=== PATIENT | male | born 1955 | race Caucasian/White ===

== ENCOUNTER 2021-07-25 15:53 | Inpatient (IN) | payer OTHER ==
[~2021-07-25] VITALS: Ht 188 cm; Wt 88.0 kg
[2021-07-25 16:02] VITALS: BP 145/100
[2021-07-25 16:26] LABS: BASOPHILS 0.3 % (0.0-2.0); HEMATOCRIT 51.5 % (42.0-52.0); HEMOGLOBIN 17.5 gm/dL (14.0-18.0); MCH 31.7 pg (26.0-34.0); MCV 93.4 fL (80.0-100.0); MONOCYTES 5.1 % (1.0-8.0); PLATELET COUNT 284 thou/uL (150-400); POLYS 92.6 % (36.0-66.0); RBC 5.51 mil/uL (4.50-6.00); RDW 13.9 % (10.5-14.5); WBC 11.9 thou/uL (4.0-11.0)
[2021-07-25 16:44] LABS: BE(vivo) -3.5 mmol/L (-2 to +3); HCO3 18.1 mmol/L (22.0-26.0); PCO2 25.8 mmHg (35.0-45.0); PO2 64.2 mmHg (80.0-100.0); pH 7.463 (7.360-7.450)
[2021-07-25 16:48] LABS: CALCIUM 9.4 mg/dL (8.5-10.1); CREATININE 1.1 mg/dL (0.7-1.3)
[2021-07-25 16:51] LABS: ALBUMIN 2.9 g/dL (3.4-5.0); TOTAL BILIRUBIN 0.7 mg/dL (0.2-1.0); TOTAL PROTEIN 8.2 g/dL (6.4-8.2)
--- NOTE | 2021-07-25 19:04 | NUR ---
REPORT GIVEN TO MORELIA GABRIEL AT THIS TIME
[2021-07-25 20:02] VITALS: BP 134/88
[2021-07-25 20:49] VITALS: BP 126/81
[2021-07-25 21:19] LABS: ALBUMIN 2.6 g/dL (3.4-5.0); TOTAL PROTEIN 7.3 g/dL (6.4-8.2)
[2021-07-25 21:41] VITALS: BP 147/94
[2021-07-25 23:56] VITALS: BP 141/88
--- NOTE | 2021-07-26 02:01 | NUR ---
PT ADMITTED TONIGHT TO RM 349 FROM ER FOR SOA COVID +. ALERT AND ORIENTED X4. DENIED WEAKNESS OR DIZZINESS BUT PLACED ON FALL PRECAUTIONS FOR NOW DUE TO SOA, OPTIFLOW TUBES ANDD IV TUBING. VSS AFEBRILE. OPTIFLOW AT 50LF AND 95% FIO2. LUNGS SOUND DIMINSHED AND UNLABORED PRESENTLY. ORIENTED PT TO , FALL PRECAUTIONS, MEDICATIONS ETC. BED ALARM IS ON. WILL CONTINUE TO MONITOR PT FOR CHANGES.
[2021-07-26 04:10] VITALS: BP 116/82
[2021-07-26 04:52] LABS: HEMATOCRIT 48.5 % (42.0-52.0); HEMOGLOBIN 16.5 gm/dL (14.0-18.0); MCH 31.8 pg (26.0-34.0); MCHC 34.1 g/dL (28.0-37.0); MCV 93.4 fL (80.0-100.0); RBC 5.19 mil/uL (4.50-6.00); RDW 13.6 % (10.5-14.5); WBC 8.8 thou/uL (4.0-11.0)
[2021-07-26 05:05] LABS: CALCIUM 9.2 mg/dL (8.5-10.1); CREATININE 0.9 mg/dL (0.7-1.3); MAGNESIUM 2.3 mg/dL (1.8-2.4); POTASSIUM 4.5 mmol/L (3.5-5.1)
--- NOTE | 2021-07-26 05:46 | NUR ---
PT TOLERATING OPTIFLOW SAT IS 99% PRESENTLY.NO C/O PAIN OR SOA. LUNGS SOUND DIMINISHED AND UNLABORED PRESENTLY. VSS AFEBRILE.
--- NOTE | 2021-07-26 06:47 | NUR ---
I ASKED PT HIS CURRENT PHARMACY AND HE IS NOT CERTAIN WHICH PHARMACY HIS DAUGHTER PICKED HIS MEDS UP FROM IN [facility]. HE DID NOT KNOW HIS CURRRENT MEDS . I ATTEMPTED TO ASK HIM HIS CURRENT MEDS FROM HIS RECENT CLAIM HISTORY DOSES ARE LISTED BUT PT IS UNABLE TO TELL NS TIMES HE TAKES HIS MEDS OR WHICH MEDS HE IS STILL CURRENTLY TAKING. INSTRUCTED PT HE SHOULD INFORM NS HE IS TAKING MEDS FOR ERECTILE DYSFUNCTION NEXT TIME UPOM ADMISSION DUE TO POTENTIAL DRUG INTERACTIONS. PT STATED HE WOULD TEXT HIS DAUGHTER TO BRING A LIST OF HIS HOME MEDS AMD CURRENT PHARMACY ADDRESS IN [facility].
[2021-07-26 07:17] VITALS: BP 134/94
[2021-07-26 11:07] VITALS: BP 129/84
[2021-07-26 11:21] VITALS: BP 129/84
[2021-07-26] MEDS ORDERED: MELOXICAM15 MG PO (14:58)
[2021-07-26] MEDS ORDERED: NEURONTIN 300M300 M2 PO (14:58)
[2021-07-26] MEDS ORDERED: CIALIS20 MG PO (14:59)
[2021-07-26 16:11] VITALS: BP 144/94
[2021-07-26] MEDS ORDERED: DEXAMETHASONE 44 M1 (18:19)
[2021-07-26] MEDS ORDERED: IVERMECTIN3 MG PO (18:20)
[2021-07-26] MEDS ORDERED: LUVOX 50MG TABL50 M1 PO (18:21)
[2021-07-26] MEDS ORDERED: PLAQUENIL200 MG PO (18:22)
[2021-07-26] MEDS ORDERED: SPIRONOLACTONE100 M1 PO (18:23)
[2021-07-26] MEDS ORDERED: CYPROHEPTAD2 MG/5 ML PO (18:24)
[2021-07-26] MEDS ORDERED: DUTASTERIDE0.5 MG PO (18:24)
[2021-07-26] MEDS ORDERED: LIPITOR 20 MG T20 M1 PO (18:25)
[2021-07-26] MEDS ORDERED: FAMOTIDINE20 MG PO (18:26)
[2021-07-26] MEDS ORDERED: K2-D3 10,000 U1 EACH PO (18:27)
[2021-07-26] MEDS ORDERED: VITAMIN C1000 MG PO (18:28)
[2021-07-26] MEDS ORDERED: ZINC50 M3 PO (18:28)
--- NOTE | 2021-07-26 20:00 | NUR ---
PT ALERT AND ORIENTED X 4. SPOKE WITH PT AND DAUGHTER, JAVY, MULTIPLE TIMES TODAY ABOUT COURSE OF TREATMENT. PT ORIGINALLY DENIED REMDESIVIR. AFTER SPEAKING WITH PT AND EDUCATING ON DISEASE PROCESS, PT SAID "I WANT REMDESIVIR, JUST DONT TELL MY DAUGHTER". AFTER SPEAKING WITH DAUGHTER, WHO IS RN FLOAT, SHE STATED SHE WAS EXTREMELY AGAINST REMDESIVIR SHE HAS "SEEN PT'S TANK ON REMDESIVIR". DAUGHTER REQUESTED AND INSISTED ON HAVING A COPY OF ALL MEDICATIONS PT IS TAKING, REGARDLESS OF NOT BEING DPOA. SPOKE WITH PT ABOUT DAUGHTER WANTING MEDICATION LIST AND PT SAID HE WAS UNSURE IF HE WANTED THAT OR NOT. PT ALSO CHANGED HIS MIND AGAIN ABOUT TAKING REMDESIVIR, STATING HIS DAUGHTER WAS VERY AGAINST IT. DAUGHTER UPSET THAT "DOCTOR AND NURSE ARE SCARING MY FATHER", AFTER PT EDUCATION. EDUCATED PT THAT HE IS ALERT, ABLE, AND SHOULD MAKE HIS OWN DECISIONS BASED ON HIS THOUGHTS, NOT THAT OF OTHERS. PT SAID HE WOULD CONSIDER STILL TAKING REMDESIVIR.
[2021-07-26 20:41] VITALS: BP 150/97
[2021-07-27 04:33] LABS: HEMATOCRIT 47.4 % (42.0-52.0); HEMOGLOBIN 16.4 gm/dL (14.0-18.0); MCH 32.2 pg (26.0-34.0); MCHC 34.6 g/dL (28.0-37.0); RBC 5.09 mil/uL (4.50-6.00); RDW 13.4 % (10.5-14.5); WBC 10.7 thou/uL (4.0-11.0)
[2021-07-27 04:49] LABS: CALCIUM 9.1 mg/dL (8.5-10.1); CREATININE 0.9 mg/dL (0.7-1.3); MAGNESIUM 2.3 mg/dL (1.8-2.4); POTASSIUM 4.2 mmol/L (3.5-5.1)
[2021-07-27 05:51] VITALS: BP 124/97
--- NOTE | 2021-07-27 06:37 | NUR ---
PT A/0X4. 02 SATURATION STAYED IN MID 90'S OVERNIGHT ON THE OPTIFLOW. SPOKE TO PT'S DAUGHTER WHO IS AN ASSEMBLER [employer] AND ANSWERED HER QUESTIONS. SHE ALSO STATED THAT HER FATHER DOES NOT WANT THE REMEDESIVIR. PT VOIDED AND HAD BM OVERNIGHT.
[2021-07-27 07:11] VITALS: BP 125/83
--- NOTE | 2021-07-27 07:12 | EKG ---
[address] [address] ELECTROCARDIOGRAM REPORT Name: MITRA CORNEJO Room #: 349-I ADM IN M.R.#: [id number] Admission: 07/25/21 Attend Phys: Keshav Correa MD Discharge: Date of : 57 Report #: [id number] [facility] ED Test Date: 2021-07-25 Test Time: 16:07:13 Pat Name: MITRA CORNEJO Department: Room: 349 Gender: M Freight Inspector: GOMEZ : 1955 Requested By: Steven Hoff Order Number: [id number] MD: Adan Lin Measurements Intervals Dike Rate: 79 P: 21 UT: 165 QRS: 54 QRSD: 90 T: 38 QT: 370 QTc: 425 Interpretive Statements Sinus rhythm Probable left atrial enlargement Baseline wander in lead(s) V3 No previous ECG available for comparison Electronically Signed On 07-27-2021 7:12:01 EXTERMINATOR [employer]PER TERMITE by Adan Lin [email or web address] <ELECTRONICALLY SIGNED> By: Adan Lin MD, [facility] 07/27/21 0712 [id number] Adan Lin MD, FACC /EPI
--- NOTE | 2021-07-27 08:31 | HC ---
[facility] [address] [address] CONSULTATION Name: MITRA CORNEJO Room #: 349-I ADM IN .R.#: [id number] Admission: 07/25/21 Attend Phys: Keshav Correa MD Discharge: Date of : 57 Report #: [id number] THIS REPORT FOR: cc: FAM - Family physician unknown FAM - Family physician unknown Mario Martinez MD ~ DATE OF SERVICE: 07/26/2021 INFECTIOUS DISEASE CONSULTATION ATTENDING PHYSICIAN: Dr. Correa. REASON FOR EVALUATION: COVID-19 infection. HISTORY OF PRESENT ILLNESS: Chart reviewed. The patient examined. This is a 65-year-old gentleman with minimal past medical history, does have a basal cell carcinoma of the face, who apparently has been ill for a number of days, somewhat of a biphasic illness. He had developed mild respiratory type signs and symptoms back on 07/08, was found to be COVID positive when tested. He noted he took obiy-pnf-evvcqjt medicines, was seemingly doing okay until , which had been 07/22 and clinical worsening is notable that his spouse had COVID as well and she did require more immediate care, specifically noted increasing dyspnea, did obtain a sat monitor where it became apparent that he was progressively getting worse. He was found to have saturations in the 60s. He did present to the Emergency Room, he was again confirmed to have COVID positive testing. ABGs showed a pO2 of 64 on 6 liters. Influenza antigen was negative. Lactic acid of 2.4. Chest x-ray showed bibasilar interstitial pneumonitis. Procalcitonin was slightly elevated at 0.11. He did undergo CT of the chest, noted no evidence of pulmonary embolus. Blood cultures collected at time of admission are sterile thus far. 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 Early on, may have had some fevers and chills, shakes, not for many days, however. He was empirically started on combination therapy with ceftriaxone and azithromycin. Also, given corticosteroids, ivermectin. ALLERGIES: None known. CURRENT MEDICATIONS: Include dexamethasone, ceftriaxone, azithromycin, thiamine, ipratropium, albuterol inhaler, ivermectin, famotidine, enoxaparin, atorvastatin, melatonin, zinc, ascorbic acid. PAST MEDICAL HISTORY: Notable for basal cell carcinoma, hernia repair. SOCIAL HISTORY: Nonsmoker, occasional ethanol, no illicit drug use. FAMILY HISTORY: Noncontributory. [facility] [address] [place] [address] CONSULTATION Name: MITRA CORNEJO Room #: 349-I [facility] IN [facility]#: [id number] Admission: 07/25/21 Attend Phys: Keshav Correa MD Discharge: Date of : 57 Report #: [id number] REVIEW OF SYSTEMS: Otherwise, unremarkable. PHYSICAL EXAMINATION: GENERAL: He is alert, cooperative, in moderate distress secondary to respiratory difficulty. He does have intermittent coughs that are nonproductive. He is generally lucid, appears to be reasonably well nourished. VITAL SIGNS: Temperature 97.1, pulse 76, respirations 20, blood pressure is 134/94. HEENT: Normocephalic. Extraocular muscles intact. Does have a high flow nasal cannula in place at 50 liters per minute, FiO2 of 95%. NECK: Supple. LUNGS: Bilateral scattered crackles. HEART: Regular. I do not appreciate a murmur. ABDOMEN: Mildly distended, somewhat firm, nontender. EXTREMITIES: No cyanosis. GENITOURINARY AND RECTAL: Deferred. LABORATORY DATA: Blood cultures sterile thus far. Electrolytes: Sodium 134, potassium 4.5, chloride 99, bicarbonate is 22, anion gap of 13, BUN and creatinine 31 and 0.9, glucose of 154. D-dimer 0.87. CRP of 15.1. CBC: White count of 8.8, H and H 16.5 and 48.5, platelets of 251. Lactic acid initially 2.4, repeat was 1.8. ASSESSMENT AND PLAN: COVID-19 infection, complicated by pneumonitis and respiratory failure with early ARDS, appears to be somewhat of a biphasic illness and include a secondary bacterial pneumonitis, started on combination therapy. Given his potential exposure, we will adjust treatment for atypicals utilizing a tetracycline instead of the macrolide. We will try to collect a sputum sample in the event that he can expectorate. He remains quite tenuous at this point, he is out of the timeframe for remdesivir. He appears to be quite tenuous. Continue to monitor expectantly. <ELECTRONICALLY SIGNED> By: Mario Martinez MD 07/27/21 0831 Mario Martinez MD /nt
[2021-07-27 11:00] VITALS: BP 137/86
[2021-07-27 14:51] VITALS: BP 132/75
--- NOTE | 2021-07-27 14:51 | NUR ---
INITIAL ASSESSMENT: Received consult. MILTON reviewed chart and spoke with nursing and attending physician. Pt was admitted from home due to COVID. Pt placed in Enhanced Isolation. Per chart, pt had first positive COVID test on 07/08. Pt is not received a COVID vaccination. Pt is afebrile and requiring optiflow. Pt is on IV abx and IV steroids. Pt and family have refused Remdesivir. MILTON placed call to pt's room. No anser. Per chart, pt lives at home with his . Prior to admission, pt was independent with ADLs. No use of DME. No steps to enter the home and 12 steps inside. Therapy is following to assist with recommendations for discharge needs. SW is following to assist as needed with discharge planning.
--- NOTE | 2021-07-27 16:46 | NUR ---
PT ALERT AND ORIENTED X 4. SPOKE WITH PT ABOUT REMDESIVIR AND PT DENIED ADMINISTRATION. SPOKE WITH PT DAUGHTER, JAVY, PT DAUGHTER UPSET "WE ARE STILL OFFERING REMDESIVIR". PT AND PT DAUGHTER AGREED TO ACTERMA, PT STARTED MEDICATION TODAY. FALL PRECAUTIONS IN PLACE. WILL CONTINUE TO MONITOR.
[2021-07-27 18:53] VITALS: BP 133/89
[2021-07-27 19:01] VITALS: BP 142/98
--- NOTE | 2021-07-28 03:57 | NUR ---
PROGRESS PT A/O X4. VSS AFEBRILE. LUNGS DIMINISHED BUT COUGHING UP SOME CLEAR/WHITE SEMI THICK SPUTUM. REMAINS ON OPTIFLO AT 50L/98% FIO2. TOLERATING WELL. ASCORBIC ACID AND DOXYCYCLINE ADMINISTERED IV ORDERED. IV INFILTRATED AT END OF DOXYCYCLINE INFUSION REFUSED RESTART OF IV UNTIL THE AM STATING HE WAS TIRED AND WANTED TO SLEEP. VOIDING QS AND HAD AN HS SNACK OF ICE CREAM AND NIKITA CRACKERS. CONTINUE POC.
[2021-07-28 03:58] VITALS: BP 123/83
[2021-07-28 06:40] LABS: HEMOGLOBIN 16.1 gm/dL (14.0-18.0); MCHC 34.2 g/dL (28.0-37.0); MCV 93.5 fL (80.0-100.0); RBC 5.02 mil/uL (4.50-6.00); RDW 13.2 % (10.5-14.5); WBC 8.1 thou/uL (4.0-11.0)
[2021-07-28 07:09] LABS: CALCIUM 8.9 mg/dL (8.5-10.1); CREATININE 0.9 mg/dL (0.7-1.3); MAGNESIUM 2.4 mg/dL (1.8-2.4); POTASSIUM 4.3 mmol/L (3.5-5.1)
[2021-07-28 07:39] VITALS: BP 117/82
[2021-07-28 11:39] VITALS: BP 125/77
--- NOTE | 2021-07-28 13:10 | NUR ---
PT DAUGHTER JAVY HAS CALLED 2X AND WOULD LIKE FOR DR. GEE, DR. KIM, AND DR. JARRETT TO CALL HER TODAY. HER NUMBER IS [phone]. HER CONCERNS ARE PT'S CRP JUMPED FROM 8 TO 75.5 AND WOULD LIKE TO HAVE HER FATHER PRONED.
[2021-07-28 15:01] VITALS: BP 121/78
--- NOTE | 2021-07-28 15:47 | NUR ---
MILTON reviewed chart and spoke with nursing and attending physician. Pt remains in Enhanced Isolation due to COVID. Pt is afebrile and on optiflow. Pt is on IV steroids and IV abx. Pt had dose of actemra yesterday. SW placed calls to pt's room. No answer. Per chart, pt's dtr, Mel, has called requesting to speak with physicians. Pt is from home. Therapy has been ordered to assist with recommendations for discharge needs. MILTON is following to assist as needed with discharge planning.
[2021-07-28 19:15] VITALS: BP 132/85
[2021-07-29 03:30] VITALS: BP 121/87
[2021-07-29 06:36] LABS: ABSOLUTE NEUTROPHILS 9.9 thou/uL (1.4-8.2); BASOPHILS 0.1 % (0.0-2.0); HEMATOCRIT 44.4 % (42.0-52.0); HEMOGLOBIN 15.2 gm/dL (14.0-18.0); LYMPHOCYTES 3.5 % (24.0-44.0); MCH 31.9 pg (26.0-34.0); MCHC 34.3 g/dL (28.0-37.0); MONOCYTES 2.5 % (1.0-8.0); PLATELET COUNT 272 thou/uL (150-400); POLYS 92.9 % (36.0-66.0); RBC 4.77 mil/uL (4.50-6.00); RDW 13.4 % (10.5-14.5); WBC 10.6 thou/uL (4.0-11.0)
[2021-07-29 07:12] VITALS: BP 125/82
[2021-07-29 07:12] LABS: ALBUMIN 2.3 g/dL (3.4-5.0); CALCIUM 8.5 mg/dL (8.5-10.1); CREATININE 0.9 mg/dL (0.7-1.3); MAGNESIUM 2.2 mg/dL (1.8-2.4); POTASSIUM 4.3 mmol/L (3.5-5.1); TOTAL BILIRUBIN 0.6 mg/dL (0.2-1.0); TOTAL PROTEIN 6.6 g/dL (6.4-8.2)
--- NOTE | 2021-07-29 07:48 | NUR ---
PROGRESS PT A/O X4. VSS UP AD JOSY VOIDING QS. DENIES PAIN. TELEMETRY INTACT READING SR W/BBB RATES IN 70'S TO 80'S. ON OPTIFLOW AT 50L/90%FIO2 NARES BLEEDING AND FEELS STUFFY , CLEANSED WITH NS AND SOME LUBRICATING JELLY APPLIED FOR COMFORT. CONTINUE POC.
[2021-07-29 11:07] VITALS: BP 138/85
--- NOTE | 2021-07-29 12:00 | NUR ---
MILTON reviewed chart and spoke with nursing and attending physician. Enhanced Isolation precautions were discontinued yesterday. Pt is afebrile and on optiflow. Pt is on IV abx, IV steroids and Ivermectin. MILTON spoke with pt via phone. Introduced role of SW. Pt appears to be alert/orientated x 4. Pt reports he lives at home with family. Prior to admission, pt was independent with ADLs. No use of DME. No steps to enter the home. All needs are met on the ground level. No hx of services or post-acute placement. Pt states his PCP is Mel Nance NP (pt's dtr). Therapy has been ordered. Plan is for pt to discharge home when medically stable. Attending physician spoke with pt's dtr yesterday to provide update and discuss plan of care. MILTON is following to assist as needed with discharge planning.
[2021-07-29 15:28] VITALS: BP 134/85
--- NOTE | 2021-07-29 16:27 | NUR ---
PT ALERT AND ORIENTED X 4. PT DENIES PAIN AND ANY NEEDS AT THIS TIME. CALL LIGHT AND BELONGINGS WITHIN REACH. WILL CONTINUE TO MONITOR.
[2021-07-29 19:45] VITALS: BP 133/79
--- NOTE | 2021-07-30 02:47 | NUR ---
PROGRESS PT A/O X4. LUNGS CLEAR AND DIMINISHED. COUGHING MORE FREQUENTLY GETTING UP SOME SMALL AMOUNTS OF SPUTUM PER PATIENT NOT VISUALIZED BY THIS RN. SKIN C/D/I . REMAINS ON OPTIFLOW AT 50 LITERS/90% FIO2. IV TO RF INTACT BUT PT REPORTED PAIN WITH DOXYCYCLINE INFUSION. SITE SLIGHTLY PINK BUT SUBSIDED AFTER FLUSHING WITH 20 CC OF NS. UP AD JOSY TO BSC ABLE TO MANAGE EQUIPMENT WITHOUT DIFFICULTY, VOIDING QS EATING SNACKS FROM HOME AT BEDSIDE PLAN IS TO TITRATE O2 AND INCREASE ACTIVITY TOLERATED.
[2021-07-30 04:53] VITALS: BP 122/80
[2021-07-30 07:16] VITALS: BP 115/82
[2021-07-30 09:28] LABS: HEMATOCRIT 49.8 % (42.0-52.0); HEMOGLOBIN 17.1 gm/dL (14.0-18.0); MCH 31.8 pg (26.0-34.0); MCHC 34.3 g/dL (28.0-37.0); MCV 92.8 fL (80.0-100.0); PLATELET COUNT 312 thou/uL (150-400); RBC 5.36 mil/uL (4.50-6.00); RDW 13.5 % (10.5-14.5); WBC 10.4 thou/uL (4.0-11.0)
[2021-07-30 09:37] LABS: POTASSIUM 3.8 mmol/L (3.5-5.1)
[2021-07-30 11:04] VITALS: BP 123/73
--- NOTE | 2021-07-30 14:05 | NUR ---
MILTON reviewed chart and spoke with nursing and attending physician. Pt remains on optiflow. Pt is afebrile and on IV meds and Ivermectin. No weekend discharge planned. MILTON placed call to pt's room. No answer. MILTON notified today that pt does not have health insurance. [facility] to screen pt. MILTON is following to assist as needed with discharge planning.
[2021-07-30 15:03] LABS: ABSOLUTE NEUTROPHILS 9.6 thou/uL (1.4-8.2); MYELOCYTES 1 %
[2021-07-30 15:06] VITALS: BP 119/73
--- NOTE | 2021-07-30 16:55 | NUR ---
assumed care of pt at 0700. pt aox4 no distress flat affect voicing no particular complaints or concerns. reports feeling better today and continues to improve. calls out appropriately. iv abx infusing per order.
[2021-07-30 18:47] VITALS: BP 131/84
[2021-07-31 04:57] VITALS: BP 116/77
[2021-07-31 07:06] VITALS: BP 114/71
--- NOTE | 2021-07-31 07:33 | NUR ---
PT MAKING SLOW PROGRESS TOWARDS GOALS. ON O2 PER OPTIFLO AT 50L/92%. PT REPORTING HE HAS BEEN ABLE TO BE UP TO BSC WITHOUT SIGNIFICANT SOA. USING I.S., GETTING VOLUMES UP TO "2000."
[2021-07-31 11:04] VITALS: BP 114/70
--- NOTE | 2021-07-31 13:38 | NUR ---
CARE ASSUMED THIS AM, PT ALERT AND ORIENRED X4, DENIES ANY PAIN, NAUSEA AND VOMITTING. CONTINUE TO BE ON OPTIFLOW 50L, 93%, SOB WITH EXERTION. LUNGS COARSE AND CRACKLY. UP TO BSC, AND USES URINAL. PT DAUGHTER CALLED AND UPDATED ABOUT CARE, SHE WANTED TO TALK TO PT PROVIDERS, MADE THE PROVIDERS AWARE. OFF ISOLATION. DENIES ANY NEEDS, WILL COTNINUE TO MONITOR.
[2021-07-31 15:10] VITALS: BP 130/60
[2021-07-31 19:35] VITALS: BP 132/86
[2021-08-01 03:30] VITALS: BP 1248/80
[2021-08-01 05:12] LABS: CALCIUM 8.7 mg/dL (8.5-10.1); CREATININE 0.8 mg/dL (0.7-1.3); POTASSIUM 3.9 mmol/L (3.5-5.1)
[2021-08-01 05:21] LABS: HEMATOCRIT 45.4 % (42.0-52.0); HEMOGLOBIN 15.5 gm/dL (14.0-18.0); MCH 31.6 pg (26.0-34.0); MCHC 34.2 g/dL (28.0-37.0); MCV 92.6 fL (80.0-100.0); RBC 4.9 mil/uL (4.50-6.00); RDW 13.1 % (10.5-14.5); WBC 10.3 thou/uL (4.0-11.0)
[2021-08-01 07:20] VITALS: BP 114/65
--- NOTE | 2021-08-01 07:28 | NUR ---
PT MAKING SLOW PROGRESS TOWARDS GOALS. ON OPTIFLO AT 50L AND 91%. LUNGS CTA WITH FAINT CRACKLES NOTED OVER RLL. CONTINUES TO USE I.S. AND PRONE HIMSELF FOR SLEEP AT NIGHT.
[2021-08-01 11:00] VITALS: BP 106/57
[2021-08-01 15:47] VITALS: BP 115/75
--- NOTE | 2021-08-01 16:29 | NUR ---
PT IS SLOWLY PROGRESSING TOWARDS CARE. CURRENTLY ON 35L, 65% OPTIFLOW. SOB WITH EXERTION. NO DISTRESS NOTED. UP TO CHAIR INDEPENDENTLY AND USUES URINAL. DENIES DIARRHEA TODAY. VISITING. WILL CONTINUE TO MONITOR
[2021-08-01 18:42] VITALS: BP 127/81
--- NOTE | 2021-08-02 02:27 | NUR ---
PT PROGRESSING SLOWLY TOWARDS D/C GOALS. VSS AFEBRILE. SATS WNL ON OPTIFLO 35LF AND FIO2 65%. DENIED PAIN OR SOA. HE IS RESTING QUIETLY SLEEPING. WILLL CONTINUE TO MONITOR PT FOR CHANGES.
[2021-08-02 04:47] VITALS: BP 113/69
--- NOTE | 2021-08-02 06:09 | NUR ---
NO CHNAGES IN ASSESSMENT TONIGHT EXCEPT LUNGS SOUND SLIGHTLY COARSE THIS AM AND DIMINSHED. ENCOURAGED T,C & DB AND SITTING UP OOB TODAY. OPTIFLO STILL 35LF AND 65 FIO2.
[2021-08-02 07:24] VITALS: BP 109/67
[2021-08-02 11:36] VITALS: BP 117/74
[2021-08-02 16:31] VITALS: BP 124/76
--- NOTE | 2021-08-02 16:52 | NUR ---
SW reviewed chart and spoke with nursing and attending physician. Pt is now on 10L of O2. Pt is on IV steroids. SW spoke with pt via phone. Discussed discharge and possible need for home O2 at time of discharge. Pt verbalized understanding. Plan is for pt to discharge home when medically stable. SW is following to assist as needed with discharge planning.
--- NOTE | 2021-08-02 19:17 | NUR ---
ASSESSMENT CHARTED. PT ALERT AND ORIENTED. VSS. DENIED HAVING PAIN OR DISCOMFORT. ON 10L OXYGEN. REPORT FEELING MUCH BETTER. UP IN THE CHAIR MOST OF THE SHIFT. DAUGHTER UPDATED ON PT'S PROGRESS. PT PROGRESSING WELL TOWARDS DISCHARGE GOAL.
[2021-08-02 20:15] VITALS: BP 140/95
--- NOTE | 2021-08-02 22:22 | NUR ---
PT A&OX4. VSS AFEBRILE. SATS 95% ON RA PRESENTLY. NO C/O OF PAIN OR SOA. ON 10LNC. PROGRESSING WELL TOWARDS D/C GOALS. PT AMBULATES WITH STEADY GAIT IN HIS ROOM. PT OFF ISOLAION NOW.
[2021-08-03 04:16] LABS: CALCIUM 8.5 mg/dL (8.5-10.1); CREATININE 0.8 mg/dL (0.7-1.3); POTASSIUM 3.7 mmol/L (3.5-5.1)
[2021-08-03 04:30] VITALS: BP 120/80
[2021-08-03 04:44] LABS: HEMATOCRIT 45.3 % (42.0-52.0); HEMOGLOBIN 15.6 gm/dL (14.0-18.0); MCH 31.7 pg (26.0-34.0); MCHC 34.4 g/dL (28.0-37.0); MCV 92.2 fL (80.0-100.0); RBC 4.91 mil/uL (4.50-6.00); RDW 13.3 % (10.5-14.5); WBC 10.9 thou/uL (4.0-11.0)
[2021-08-03 07:25] VITALS: BP 121/79
--- NOTE | 2021-08-03 08:04 | NUR ---
PT HAS HAD NO C/O SOA OR PAIN TONIGHT. PROGRESSING WELL TOWARDS D/C GOALS.
--- NOTE | 2021-08-03 15:44 | NUR ---
MILTON reviewed chart and spoke with nursing and attending physician. Pt was moved to room 359 yesterday. Pt is out of Enhanced Isolation. Pt is on 10L of O2 and on IV steroids. Pt's insurance updated, as pt has Medicare. MILTON met with pt at bedside to discuss discharge needs. Pt is aware that he will most likely need home O2. Options for DME discussed. No preference voiced. Home O2 referral faxed to [facility] for review. MILTON notified [facility] liaison. Will need rest/exercise oximetry completed prior to discharge. [facility] is following for possible HH at time of discharge. MILTON is following to assist as needed with discharge planning.
[2021-08-03 16:24] VITALS: BP 114/68
--- NOTE | 2021-08-03 16:39 | NUR ---
PATIENT IS ALERT AND ORIENTED X4. HE HAS DIMINISHED LUNG SOUNDS. PATIENT AT THE BEGINNING OF THIS SHIFT STARATED ON 10L OF OXYGEN VIA HIGH FLOW NASAL CANULA. RT DECREASED PATIENT TO 5L. PATIENT WAS UNABLE TO MAINTAIN ADEQUATE OXYGEN SATURATION AND WAS INCREASED BACK TO EIGHT LITERS OF OXYGEN ON THE HIGH FLOW NASAL CANULA. PATIENT IS CC/ TELE AND HAS BEEN SINUS DENNISE THIS SHIFT. PATIENT HAD HIS LAST BM THIS SHIFT 08/03/21. PATIENT HAS BEEN UP TO THE REST ROOM ADLIB AND HAS BEEN CONTINENT THIS SHIFT. PATIENT HAS NA IV ON HIS RIGHT AC THAT IS SALINE LOCKED. PATIENTS IV SITE IS PATENT. PATIENT WILL CONTINUE TO BE MONITORED.
--- NOTE | 2021-08-03 19:04 | NUR ---
GATITO FROM [facility] CALLED AT APPROXIMATELY 1850. SHE STATED THAT ALL HER COMPANY RECIEVED WAS A FACE SHEET WITH NO ORDERS. SHE ASKED IF PATIENT WAS GOING TO BE GOING HOME ON OXYGEN. WAS ADVISED THAT I COULDNT GIVE HER INFORMATION. SHE ASKED IF A PRESCRIPTION FOR OXYGEN COULD BE FAXED TO . IF ANYONE NEEDED TO CALL THE PHONE NUMBER WAS [phone].
[2021-08-03 19:55] VITALS: BP 118/79
--- NOTE | 2021-08-04 04:10 | NUR ---
PT IS SLOWLY PROGRESSING TOWARD GOAL OF DISCHARGE HOME. PT IS A&OX4 AND ABLE TO COMMUNICATE ALL WANTS AND NEEDS TO STAFF. PT IS UP TO BR AD JOSY, STEADY GAIT NOTED. PT ON CONTINUOUS O2 MONITORING, WAS TITRATED TO 5L/NC PER RT AT THE BEGINNING OF THIS SHIFT, HAS TOLERATED WELL MAINTAINING SATS 93-96%. PT DOES DESAT TO 86-88% WHILE UP TO THE BR, BUT RECOVERS QUICKLY WHEN AT REST. SINUS RHTHYM/BRADYCARDIA NOTED ON CARDIAC MONITORING. WILL CONTINUE TO OBSERVE FOR CHANGES.
[2021-08-04 05:00] VITALS: BP 119/78
[2021-08-04 07:32] VITALS: BP 121/76
[2021-08-04 11:26] VITALS: BP 117/77
[2021-08-04 16:44] VITALS: BP 149/97
--- NOTE | 2021-08-04 18:18 | NUR ---
PATIENT HAS BEEN ALERT AND ORIENTED X4 THIS SHIFT. PATIENT IS AWARE OF HIS LIMITATIONS. PATIENTS LUNG SOUNDS ARE DIMINISHED. PATIENT IS ON 5L'S OF OXYGEN VIA HIGH FLOW NASAL CANULA. PATIENT IS CC/ TELE AND RUNS SINUS DENNISE/ SINUS RHYTHM THIS SHIFT. PATIENT IS CONTINEN TO OF BOTH BOWEL AND BLADDER AND GETS UP ADLIB. PATIENT WAS TITRATING HIS OWN OXYGEN WHEN HE GOT UP TO GO TO THE BATHROOM BUT WAS EDUCATED ON THE IMPORTANCE OF NOT DOING THIS SO THAT HE COULD BE ADEQUATELY MEDICALLY MANAGED. PATIENT ACKNOWLEDGED HIS UNDERSTANDING AND AGREED TO NOT ADJUST HIS OXYGEN RATE. PATIENT HAS AN IV IN HIS RIGHT AC THAT IS SALINE LOCKED AND PATIENT. PATIENT WILL CONTINUE TO BE MONITORED.
[2021-08-04 19:22] VITALS: BP 133/82
[2021-08-05 03:13] VITALS: BP 116/79
--- NOTE | 2021-08-05 04:17 | NUR ---
pt maintains o2 sat on 5 liters n/c. he got up and took a shower at bedtime. denies pain. has a bit f a cough, so he is using a cough drop. no discharge concerns voiced.
[2021-08-05 08:05] VITALS: BP 119/70
[2021-08-05 11:11] VITALS: BP 114/73
--- NOTE | 2021-08-05 14:09 | NUR ---
PT IS PROGRESSING TOWARDS CARE, AXO4. CURRENTLY ON 2L OF OXYGEN. SOB WITH EXERTION. DENIES ANY PAIN. CONTINUE TO HAVE COUGH, MUCINES GIVEN PER ORDER. PT REQUESTED FOR LOVENOX TO BE D/C, EDUCATED ABOUT RISK FOR BLOOD CLOTS, STATED HE UNDERSTANDS. DR. BLAIR MADE AWARE, TAKED TO PT. LOVENOX D/C PER PT REQUEST. UP AD JOSY TO BATHROOM. ANTICIPATING FOR D/C TMR WITH OXYGEN.
[2021-08-05 17:19] VITALS: BP 118/70
[2021-08-05 19:41] VITALS: BP 125/80
[2021-08-06 03:40] VITALS: BP 111/84
--- NOTE | 2021-08-06 06:31 | NUR ---
resting with 2 liters. keeping o2 sats with in normal. denies pain. progressing toward discharge goals.
[2021-08-06 07:20] VITALS: BP 116/80
[2021-08-06] MEDS ORDERED: MUCINEX600 MG PO (12:45)
[2021-08-06] MEDS ORDERED: VITAMIN B-1100 M2 PO (12:45)
[2021-08-06] MEDS ORDERED: PULMICORT0.25 MG/3 INH (12:49)
[2021-08-06] MEDS ORDERED: ACETYLCYST200 MG/1 M INH (12:49)
[2021-08-06] MEDS ORDERED: IPRAT-ALBUT 0.5-3 ML INH (12:49)
[2021-08-06] MEDS ORDERED: PREDNISONE 10 M10 M1 PO (12:49)
[2021-08-06 13:19] VITALS: BP 116/80
--- NOTE | 2021-08-06 13:45 | NUR ---
Pt dcing home today. Home o2 and nebulizer ordered by the attending;however pt and confirm pt has home in place (prior to admission) as well as a nebulizer. to bring portable tank for dc home today. No other needs indicated at this time.
[2021-08-06 13:46] VITALS: BP 116/80
== END 2021-08-06 16:43 | disposition home or self-care (01) | DRG 871 ==
LOC: ER 15:53 → EROBS 17:49 → 3W 17:49
PROVIDERS: Hospitalist; Internal Medicine Pulmonary Disease; Nurse Practitioner; Specialist; ADMIT Internal Medicine; ATTEND Internal Medicine
PROC: 5A0955A Assistance with Respiratory Ventilation, Greater than 96 Consecutive Hours, High Flow/Velocity Cannula (ICD-10-PCS; principal; 2021-07-25)
PROC: XW033H5 Introduction of Tocilizumab into Peripheral Vein, Percutaneous Approach, New Technology Group 5 (ICD-10-PCS; 2021-07-27)
PROC: 5A0955A Assistance with Respiratory Ventilation, Greater than 96 Consecutive Hours, High Flow/Velocity Cannula (ICD-10-PCS; 2021-07-30)
DX: A41.9 Sepsis, unspecified organism (principal); U07.1 COVID-19; J12.82 Pneumonia due to coronavirus disease 2019; J80 Acute respiratory distress syndrome; E87.3 Alkalosis; E87.1 Hypo-osmolality and hyponatremia; D68.59 Other primary thrombophilia; E44.0 Moderate protein-calorie malnutrition; E66.9 Obesity, unspecified; E88.09 Other disorders of plasma-protein metabolism, not elsewhere classified; R65.20 Severe sepsis without septic shock; E87.6 Hypokalemia; Z68.24 Body mass index [BMI] 24.0-24.9, adult; Z28.21 Immunization not carried out because of patient refusal; Z79.899 Other long term (current) drug therapy
CPT/HCPCS: 10879